=== PATIENT | female | born 1950 | race Two or more races ===

== ENCOUNTER 2020-10-12 09:18 | Inpatient (IN) | payer BC, MEDICARE ==
[~2020-10-12] VITALS: Ht 160 cm; Wt 56.2 kg
[2020-10-12] VITALS (21 sets, daily range): BP systolic 27–173; BP diastolic 12–125
[2020-10-12] MEDS ORDERED: SODIUM CHLORIDE 0.9% 1,000 ML IV ONE ×2 (10:00→10:30)
[2020-10-12 10:07] LABS: Basophils # (auto) 0 10 ^3/uL (0-0.2); Eosinophils # (auto) 0 10 ^3/uL (0-0.8); Hemoglobin 13.7 g/dL (12.2-16.2); Lymphocytes # (auto) 0.1 10 ^3/uL (0.4-5.4); Mean Corpuscular Volume 106.2 fL (80.0-100.0); Monocytes # (auto) 0 10 ^3/uL (0-1.3); Neutrophils # (auto) 0.2 10 ^3/uL (1.6-8.6); Red Cell Distribution Width 15.5 % (11.8-14.3)
[2020-10-12 10:11] LABS: Basophils % (auto) 0.1 % (0.0-2.0); Eosinophils % (auto) 1.6 % (0.0-7.0); Lymphocytes % (auto) 32.8 % (10.0-50.0); Mean Corpuscular Hemoglobin 36.5 pg (28.0-32.0); Mean Corpuscular Hgb Conc. 34.4 g/dL (32.0-36.0); Monocytes % (auto) 10.5 % (0.0-12.0); Nucleated Red Blood Cells % 0.9 %; Red Blood Cells 3.76 10^6/uL (4.0-5.20)
[2020-10-12 10:16] LABS: White Blood Cell 0.4 10^3/uL (4.4-10.8)
[2020-10-12] MEDS ORDERED: cefTRIAXone 1GM/50ML D5W 50 ML IV ONE (10:30)
[2020-10-12 10:35] LABS: Albumin 2.3 g/dL (3.4-5.0); BUN/Creatinine Ratio 11.3; Bilirubin, Total 1.4 mg/dL (0.2-1.0); Calcium 7.6 mg/dL (8.5-10.1); Total Protein 5.2 g/dL (6.4-8.2)
[2020-10-12] MEDS ORDERED: POTASSIUM EFFERVESENT TAB 25 MEQ GT ONE (11:00)
[2020-10-12 11:13] LABS: Potassium 2.8 mmol/L (3.5-5.1)
[2020-10-12] MEDS ORDERED: DEXTROSE 50% SYRINGE 50 ML IV ONE (11:15)
[2020-10-12] MEDS ORDERED: NOREPINEPHRINE 8 MG/250ML KIT 250 ML IV ONE (11:23)
[2020-10-12] MEDS: NOREPINEPHRINE 8 MG/250ML KIT 250 ML IV SCH (11:28)
[2020-10-12] MEDS ORDERED: DEXTROSE (50%) 50ML SYRG IV ONE (11:30)
[2020-10-12] MEDS ORDERED: ACETAMINOPHEN 325 MG TAB PO ONE (15:45)
[2020-10-12 15:55] LABS: Urine Amorphous Crystal FEW /hpf (None Seen); Urine Bacteria NONE SEEN /hpf (None Seen); Urine Blood 2+ /uL (Negative); Urine Hyaline Cast MANY /lpf (0 - 2); Urine Mucus FEW (None Seen); Urine Specific Gravity 1.017 (1.001-1.035); Urine WBC 16 /hpf (0 - 5); Urine WBC Clumps PRESENT /hpf (None Seen)
[2020-10-12] MEDS ORDERED: ACETAMINOPHEN 325 MG TAB PO PRN (16:15)
[2020-10-12] MEDS ORDERED: MORPHINE SULFATE INJECTION 2 MG/ML SYRG IV PRN ×3 (16:15→17:15)
[2020-10-12] MEDS ORDERED: NITROGLYCERIN 0.4 MG SL TAB SL PRN (16:15)
[2020-10-12] MEDS: D5W/SOD CHLO 0.9% 1,000 ML IV SCH ×2 (16:42→22:55)
[2020-10-12] MEDS ORDERED: CEFEPIME 2 GM in SODIUM CHL 0.9% 50 ML IV ONE (16:45)
[2020-10-12] MEDS ORDERED: ONDANSETRON HCL 4 MG/2 ML VIAL IV PRN (17:15)
[2020-10-12] MEDS ORDERED: DEXTROSE (50%) 50ML SYRG IV PRN (17:15)
[2020-10-12] MEDS ORDERED: PIPERACILLIN-TAZOB 3.375GM 100 ML IV SCH (18:00)
[2020-10-12] MEDS: PHENYLEPHRINE IV 250 ML IV SCH (18:01)
[2020-10-12] MEDS: InsuLIN REG 1unit/0.01ml Soln (100units/ml) SC SCH (20:00)
[2020-10-12] MEDS: ACCU-CHEK COMFORT CURVE STRIP VI SCH (20:00)
[2020-10-12] MEDS ORDERED: FILGRASTIM(TBO) 480 MCG/0.8 ML SYRG SC ONE (20:00)
[2020-10-12] MEDS ORDERED: ETOMIDATE (2MG/ML) 20ML VIAL IV ONE ×2 (20:56→21:00)
[2020-10-12] MEDS ORDERED: SUCCINYLCHOLINE CHLORIDE 20 MG/ML 10ML VIAL IV ONE (20:56)
[2020-10-12] MEDS ORDERED: PROPOFOL 100 ML IV SCH (21:00)
[2020-10-12] MEDS ORDERED: MIDAZOLAM DRIP 50 mg/50mL 50 ML IV SCH (21:00)
[2020-10-12] MEDS ORDERED: fentaNYL Drip 2500mCg/250mlNS 250 ML IV SCH (21:00)
[2020-10-12] MEDS ORDERED: SODIUM BICARBONATE 8.4 % INJ 50ML VIAL IV ONE ×3 (21:00→23:39)
[2020-10-12] MEDS ORDERED: ROCURONIUM 10MG/ML 10ML VIAL IV ONE ×2 (21:00→21:13)
[2020-10-12] MEDS ORDERED: SODIUM BICARBONATE 8.4% INJ 50ML SYRINGE ONE ×2 (21:16→22:34)
[2020-10-12] MEDS ORDERED: MIDAZOLAM DRIP 50 mg/50mL 50 ML IV ONE (21:33)
[2020-10-12] MEDS ORDERED: fentaNYL Drip 2500mCg/250mlNS 0 ML IV ONE (21:34)
[2020-10-12] MEDS ORDERED: HYDROCORTISONE SOD SUCC 100 MG/2ML INJ VIAL ONE (22:39)
[2020-10-12] MEDS ORDERED: ACETAMINOPHEN 650 MG RECT SUPP PR ONE (23:20)
[2020-10-12] MEDS ORDERED: ACETAMINOPHEN 650 mg PER 20.3 mL UD ONE (23:29)
[2020-10-12 23:35] LABS: BUN/Creatinine Ratio 12.4; Calcium 6.3 mg/dL (8.5-10.1); Magnesium 1.6 mg/dL (1.6-2.6); Potassium 4.5 mmol/L (3.5-5.1)
[2020-10-12] MEDS ORDERED: SODIUM BICARBONATE 50ML VIAL 150 ML in SOD CHL 0.45% 1,000 ML IV SCH (23:45)
[2020-10-12] MEDS ORDERED: VASOPRESSIN 50 UNITS in D5W 5% 247.5 ML IV SCH (23:45)
[2020-10-12] MEDS ORDERED: EPINEPHrine HCL 250 ML IV SCH (23:45)
[2020-10-12] MEDS ORDERED: EPINEPHrine HCL 250 ML IV ONE (23:49)
[2020-10-13] VITALS (16 sets, daily range): BP systolic 54–165; BP diastolic 28–98
[2020-10-13] MEDS ORDERED: HYDROCORTISONE SOD SUCC 100 MG/2ML INJ VIAL IV SCH
[2020-10-13] MEDS ORDERED: DOPamine 1600MCG/ML D5W 250 ML IV SCH (00:15)
[2020-10-13] MEDS ORDERED: DOPamine 1600MCG/ML D5W 250 ML IV ONE (00:16)
[2020-10-13] MEDS ORDERED: VASOPRESSIN 20 UNIT/ML ONE ×2 (00:20→01:33)
[2020-10-13 01:13] LABS: INR 2.22 (0.9-1.15)
[2020-10-13 01:16] LABS: Partial Thromboplastin Time 81.9 sec (23.0-31.2)
[2020-10-13 01:41] LABS: Hematocrit 33.8 % (36.0-46.0); Hemoglobin 10.8 g/dL (12.2-16.2); Mean Corpuscular Hemoglobin 35.7 pg (28.0-32.0); Mean Corpuscular Volume 111.3 fL (80.0-100.0); Red Blood Cells 3.04 10^6/uL (4.0-5.20); Red Cell Distribution Width 16.2 % (11.8-14.3)
[2020-10-13 01:45] LABS: White Blood Cell 1.8 10^3/uL (4.4-10.8)
[2020-10-13 01:47] LABS: Basophils % (manual) 0 (0.0-2.0); Blast Cells 0; Promyelocytes % 0
[2020-10-13 01:58] LABS: Albumin 1.5 g/dL (3.4-5.0); Anion Gap 22 (5-15); Blood Urea Nitrogen 45 mg/dL (7-18); Calcium 7.3 mg/dL (8.5-10.1); Carbon Dioxide 15 mmol/L (21-32); Chloride 110 mmol/L (98-107); Glucose 99 mg/dL (74-106); Magnesium 1.8 mg/dL (1.6-2.6); Sodium 147 mmol/L (136-145)
[2020-10-13 02:00] LABS: Alanine Aminotransferase 52 U/L (13-56); BUN/Creatinine Ratio 12.8; GFR African American 17 mL/min; GFR Non-African American 14 mL/min
[2020-10-13 02:04] LABS: Alkaline Phosphatase 36 U/L (45-117); Aspartate Aminotransferase 258 U/L (15-37); Bilirubin, Total 0.8 mg/dL (0.2-1.0); Total Protein 4.3 g/dL (6.4-8.2)
[2020-10-13 02:07] LABS: Potassium 6.6 mmol/L (3.5-5.1)
[2020-10-13] MEDS ORDERED: SODIUM ZIRCONIUM CYCL 10 GM PAK ONE (02:17)
[2020-10-13] MEDS ORDERED: DEXTROSE 50% SYRINGE 50 ML IV ONE (02:18)
[2020-10-13] MEDS ORDERED: CALCIUM GLUC 4.65 MEQ/10ML 10 ML IV ONE (02:18)
[2020-10-13] MEDS ORDERED: DEXTROSE (50%) 50ML SYRG IV ONE ×2 (02:30)
[2020-10-13] MEDS ORDERED: ALBUTEROL SULF 2.5 MG/0.5ML(0.5%) NEB SOLN NEB ONE (02:30)
[2020-10-13] MEDS ORDERED: InsuLIN REG 1unit/0.01ml Soln (100units/ml) IV ONE (02:30)
[2020-10-13] MEDS ORDERED: SODIUM ZIRCONIUM CYCL 10 GM PAK PO ONE (02:30)
[2020-10-13] MEDS ORDERED: CALCIUM GLUC 1,000mg/50ml-NS 50 ML IV ONE (02:30)
[2020-10-13 02:44] LABS: Band Neutrophils % (manual) 2; Eosinophils % (manual) 2 (0-7); Lymphocytes % (manual) 74 (10.0-50.0); Metamyelocytes % 2; Monocytes % (manual) 14 (0-12); Myelocytes % 4; Reactive Lymphocytes 1
[2020-10-13] MEDS ORDERED: SODIUM BICARBONATE 50ML VIAL 150 ML in SOD CHL 0.45% 1,000 ML IV SCH (03:30)
[2020-10-13] MEDS ORDERED: SODIUM BICARBONATE 8.4 % INJ 50ML VIAL IV ONE (03:40)
[2020-10-13] MEDS: ACCU-CHEK COMFORT CURVE STRIP VI SCH ×2 (04:00→04:30)
[2020-10-13] MEDS: InsuLIN REG 1unit/0.01ml Soln (100units/ml) SC SCH ×2 (04:00)
[2020-10-13] MEDS: PHENYLEPHRINE IV 250 ML IV SCH (04:28)
[2020-10-13] MEDS: NOREPINEPHRINE 8 MG/250ML KIT 250 ML IV SCH (04:29)
[2020-10-13] MEDS ORDERED: CEFEPIME 2 GM in SODIUM CHL 0.9% 50 ML IV SCH (09:00)
[2020-10-13] MEDS ORDERED: PANTOPRAZOLE 40 MG/10 ML VIAL INJ IV SCH (10:00)
[2020-10-13] MEDS ORDERED: CALCIUM CHLOR(10%) 100MG/ML 10ML SYRINGE IV ONE (14:04)
[2020-10-13] MEDS ORDERED: SODIUM BICARBONATE 8.4% INJ 50ML SYRINGE IV ONE (14:04)
[2020-10-13] MEDS ORDERED: EPINEPHrine HCL 1 MG/10 ML SYRG IV ONE (14:04)
[2020-10-13] MEDS ORDERED: FILGRASTIM (TBO) 300 MCG/0.5 ML SYRG SC SCH (18:00)
== END 2020-10-13 14:05 | DRG 871 ==
LOC: ER 09:18 → TELE 16:09 → ICU WEST 18:29
PROVIDERS: ADMIT Hospitalist; ATTEND Hospitalist
PROC: 5A1935Z Respiratory Ventilation, Less than 24 Consecutive Hours (ICD-10-PCS; principal; 2020-10-12)
PROC: 0BH17EZ Insertion of Endotracheal Airway into Trachea, Via Natural or Artificial Opening (ICD-10-PCS; 2020-10-12)
PROC: 02HV33Z Insertion of Infusion Device into Superior Vena Cava, Percutaneous Approach (ICD-10-PCS; 2020-10-12)
PROC: B549ZZA Ultrasonography of Inferior Vena Cava, Guidance (ICD-10-PCS; 2020-10-12)
PROC: 04HL33Z Insertion of Infusion Device into Left Femoral Artery, Percutaneous Approach (ICD-10-PCS; 2020-10-12)
PROC: 5A09357 Assistance with Respiratory Ventilation, Less than 24 Consecutive Hours, Continuous Positive Airway Pressure (ICD-10-PCS; 2020-10-12)
DX: A41.9 Sepsis, unspecified organism (principal); E43 Unspecified severe protein-calorie malnutrition; J18.9 Pneumonia, unspecified organism; J96.01 Acute respiratory failure with hypoxia; R65.21 Severe sepsis with septic shock; C56.1 Malignant neoplasm of right ovary; C56.2 Malignant neoplasm of left ovary; C78.01 Secondary malignant neoplasm of right lung; D70.9 Neutropenia, unspecified; E16.2 Hypoglycemia, unspecified; K80.20 Calculus of gallbladder without cholecystitis without obstruction; Z20.822 Contact with and (suspected) exposure to COVID-19; E87.6 Hypokalemia; K52.9 Noninfective gastroenteritis and colitis, unspecified; Z68.21 Body mass index [BMI] 21.0-21.9, adult; Z82.49 Family history of ischemic heart disease and other diseases of the circulatory system; Z88.0 Allergy status to penicillin
CPT/HCPCS: 36415; 36600; 71045; 71250; 80048; 80053; 81001; 82805; 82962; 83605; 83735; 84100; 84484; 85007; 85025; 85027; 85049; 85610; 85730; 87040; 87070; 87077; 87081; 87186; 87205; 87426; 93005; 93306; 93970; 94002; 94660; 96361; 96365; 99291; G0378; J0171; J0330; J0696; J1447; J2250; J7042; J7060